=== PATIENT | female | born 1975 | race Two or more races ===

== ENCOUNTER 2018-11-04 14:38 | Outpatient (CLI) | payer OTHER | END 2018-11-04 14:44 | disposition home or self-care (01) | LOC: RAD 14:38 | DX: Z12.39 Encounter for other screening for malignant neoplasm of breast (principal) ==

== ENCOUNTER 2020-10-09 23:41 | Emergency (ER) | payer OTHER ==
[~2020-10-09] VITALS: Ht 152.4 cm; Wt 76.7 kg
[2020-10-10] MEDS ORDERED: HYDRODIURIL12.5 MG (00:22)
== END 2020-10-10 02:09 | disposition home or self-care (01) ==
LOC: ER 23:41
DX: S83.8X1A Sprain of other specified parts of right knee, initial encounter (principal); X50.0XXA Overexertion from strenuous movement or load, initial encounter; Y93.89 Activity, other specified; Y92.89 Other specified places as the place of occurrence of the external cause; Y99.8 Other external cause status

== ENCOUNTER 2020-12-07 19:14 | Emergency (ER) | payer OTHER ==
[~2020-12-07] VITALS: Ht 152.4 cm; Wt 72.6 kg
[~2020-12-07 19:14] MED LIST: HYDRODIURIL12.5 MG
[2020-12-07] MEDS ORDERED: PROPRANOLOL HCL10 MG (19:32)
== END 2020-12-08 00:49 | disposition home or self-care (01) ==
LOC: ER 19:14
DX: R10.31 Right lower quadrant pain (principal)

== ENCOUNTER 2022-03-20 23:20 | Emergency (ER) | payer OTHER ==
[~2022-03-20] VITALS: Ht 152.4 cm; Wt 65.8 kg
[~2022-03-20 23:20] MED LIST changes: +PROPRANOLOL HCL10 MG
[2022-03-20] MEDS ORDERED: CELEXA20 MG (23:49)
[2022-03-21] MEDS ORDERED: KETO10TA2 PO (02:30)
== END 2022-03-21 02:42 ==
LOC: ER 23:20
DX: M79.644 Pain in right finger(s) (principal)

== ENCOUNTER → 2023-09-14 | Emergency (ER) | payer OTHER ==
[~2023-09-14] VITALS: Ht 152.4 cm; Wt 63.5 kg
[~2023-09-14] MED LIST changes: +CELEXA20 MG; +KETO10TA2 PO; +SEROQUEL25 MG PO; +VISTARIL25 MG PO
== END | disposition left against medical advice (07) ==
LOC: ER 09:13
DX: Z53.21 Procedure and treatment not carried out due to patient leaving prior to being seen by health care provider (principal)

== ENCOUNTER 2025-01-19 09:58 | Emergency (ER) | payer OTHER ==
[~2025-01-19] VITALS: Ht 152.4 cm; Wt 61.2 kg
[2025-01-19] MEDS ORDERED: TRIAMCINOLONE ACETONIDE 40 MG/ML VIAL ONE (11:35)
[2025-01-19] MEDS ORDERED: ORPHENADRINE CITRATE 30 MG/ML AMPUL ONE (11:35)
[2025-01-19] MEDS ORDERED: KETOROLAC TROMETHAMINE 60 MG VIAL IM ONE ×2 (11:36→11:45)
[2025-01-19] MEDS ORDERED: DICLOFENAC SODI75 MG PO (11:37)
[2025-01-19] MEDS ORDERED: NORFLEX100MG PO (11:38)
[2025-01-19] MEDS ORDERED: ORPHENADRINE CITRATE 30 MG/ML AMPUL IM ONE (11:45)
[2025-01-19] MEDS ORDERED: TRIAMCINOLONE ACETONIDE 40 MG/ML VIAL IM ONE (11:45)
== END 2025-01-19 12:08 | disposition home or self-care (01) ==
LOC: ER 10:02
DX: M54.2 Cervicalgia (principal); M54.9 Dorsalgia, unspecified; R10.9 Unspecified abdominal pain